=== PATIENT | male | born 1980 | race Hispanic/Latino ===

== ENCOUNTER 2018-07-23 02:17 | Emergency (ER) | payer MEDICAID ==
[2018-07-23] MEDS ORDERED: LIDOCAINE HCL-MPF 1% 2ML VIAL ONE (03:03)
[2018-07-23] MEDS ORDERED: CEFTRIAXONE SODIUM 1 GM ONE ×2 (03:03→03:05)
[2018-07-23] MEDS ORDERED: KETOROLAC TROMETHAMINE 60 MG/2 ML VIAL ONE (03:03)
== END 2018-07-23 03:31 | disposition home or self-care (01) ==
LOC: EDH 02:17
DX: L04.0 Acute lymphadenitis of face, head and neck (principal); J45.909 Unspecified asthma, uncomplicated; Z98.890 Other specified postprocedural states
CPT/HCPCS: 96372 ×2; 99284; J0696; J1885; J3490